=== PATIENT | female | born 1975 | race Caucasian/White ===

== ENCOUNTER 2017-09-25 11:25 | Emergency (ER) | payer BC ==
[2017-09-25 12:08] VITALS: BP 151/112; PULSE 83; TEMP 98.8; BMI 31.2
--- NOTE | 2017-09-25 13:12 | PDOC ---
Attending Attestation - Resident Resident Name: JackyChris - ED Attending Attestation I have performed the following: I have examined & evaluated the patient, The case was reviewed & discussed with the resident, I agree w/resident's findings & plan, Exceptions are as noted - HPI HPI: 09/25/17 13:10 42-year-old female postop day 1 bilateral arm brachioplasty presents with swelling to both arms and numbness/tingling in her hands. No fevers or chills, no cardiopulmonary complaints. - Physicial Exam PE: 09/25/17 13:10 Vital signs normal. Well-appearing. Left greater than right arm swelling throughout and circumferential, sensation is intact over all nerve distributions, strong distal pulses and good cap refill. Wounds evaluated by Dr. Naqvi at bedside - Medical Decision Making 09/25/17 13:11 Patient seen and evaluated with the resident. I agree with the overall evaluation, assessment, and management with the following summary of visit: 42-year-old female with postoperative swelling to her left arm and some compressive neuropathy symptoms but no evidence of compartment syndrome. She is well-appearing, the patient was evaluated with Dr. Naqvi at bedside, plan is for aggressive elevation, they will redress the wounds, follow-up in his office. Patient agrees with plan, discussed strict return precautions regarding symptoms of compartment syndrome
--- NOTE | 2017-09-25 13:12 | PDOC ---
History of Present Illness - General Chief Complaint: Pain, Acute Stated Complaint: POST OP PAIN, LT ARM NUMBNESS Time Seen by Provider: 09/25/17 12:33 History Source: Patient Exam Limitations: No Limitations - History of Present Illness Initial Comments: 09/25/17 13:11 The patient is a 42F with no PMH who presents to the ER experiencing L hand numbness and swelling. The patient is POD1 from a b/l brachioplasty with Dr. Naqvi. She states that since her surgery, she felt worsening numbness and swelling in her L hand. She feels swelling in her R hand but not to the extent of her left hand. She is also complaining of the inability to make a fist in her L hand. She denies CP, SOB, fevers, chills. She also denies any discharge from her incision sites. Past History - Past Medical History Allergies/Adverse Reactions: Allergies Allergy/AdvReac Type Severity Reaction Status Date / Time No Known Allergies Allergy Verified 09/25/17 12:00 Home Medications: Ambulatory Orders NK [No Known Home Medication] 09/25/17 COPD: No DVT: No Dementia: No - Surgical History Abdominal Surgery: Yes (umbilical hernia / gastric bypass/ tubal ligation/ abdominal plasty) Appendectomy: Yes Cholecystectomy: Yes - Immunization History Immunization Up to Date: Yes - Suicide/Smoking/Psychosocial Hx Smoking History: Never smoked Information on smoking cessation initiated: No Hx Alcohol Use: No Drug/Substance Use Hx: No Substance Use Type: None Review of Systems - Review of Systems Able to Perform ROS?: Yes Comments:: 09/25/17 13:18 GENERAL/CONSTITUTIONAL: No fever or chills. No weakness. HEAD, EYES, EARS, NOSE AND THROAT: No change in vision. No ear pain or discharge. No sore throat. CARDIOVASCULAR: No chest pain, palpitations, or lightheadedness. RESPIRATORY: No cough, wheezing, shortness of breath, or hemoptysis. GASTROINTESTINAL: No nausea, vomiting, diarrhea, constipation, or abdominal pain. GENITOURINARY: No dysuria, frequency, hematuria, or change in urination. MUSCULOSKELETAL: Positive for L forearm and L hand swelling. No neck or back pain. SKIN: No rash or lesions. NEUROLOGIC: Positive for numbness and weakness in her L hand. No headache, tingling, loss of consciousness, or change in strength/sensation. ENDOCRINE: No increased thirst. No abnormal weight change. HEMATOLOGIC/LYMPHATIC: No anemia, easy bleeding, or history of blood clots. ALLERGIC/IMMUNOLOGIC: No hives or skin allergy. Is the patient limited Romanian proficient: No *Physical Exam - Vital Signs Last Vital Signs Temp Pulse Resp BP Pulse Ox 98.8 F 83 17 151/112 100 09/25/17 12:01 09/25/17 12:01 09/25/17 12:01 09/25/17 12:01 09/25/17 12:01 - Physical Exam Comments: 09/25/17 13:19 GENERAL: Well developed, well nourished. Awake and alert. No acute distress. HEENT: Normocephalic, atraumatic. Hearing grossly normal. Moist mucous membranes. PERRLA, EOMI. No conjunctival pallor. NECK: Supple. Full ROM. No JVD. CARDIOVASCULAR: Regular rate and rhythm. PULMONARY: No evidence of respiratory distress. Lungs clear to auscultation bilaterally. No wheezing, rales or rhonchi. ABDOMINAL: Soft. Non-tender. Non-distended. No rebound or guarding. GENITOURINARY: No CVA tenderness bilaterally. MUSCULOSKELETAL: No pain with passive extension in her L wrist. No pitting edema but swelling noted in L hand. Hand became pink when bandage removed from L arm. 2+ radial pulses b/l. No tenderness or hard forearm muscles. No bony deformities or tenderness. EXTREMITIES: No cyanosis. No clubbing. No edema. No calf tenderness. SKIN: Warm and dry. Normal capillary refill. No rashes. No jaundice. NEUROLOGICAL: Alert, awake, appropriate. Cranial nerves 2-12 intact. No deficits to light touch and temperature in face, upper extremities and lower extremities. No motor deficits in the in face, upper extremities and lower extremities. Normal speech. Gait is normal without ataxia. PSYCHIATRIC: Cooperative. Good eye contact. Appropriate mood and affect. Medical Decision Making - Medical Decision Making 09/25/17 13:21 The patient is a 42F with no PMH who is s/p b/l brachioplasty who presents with L arm numbness. Her plastic surgeon, Dr. Naqvi, is at bedside evaluating the patient. No evidence of compartment syndrome and the patient feels better after having the wraps removed from her arms. Dr. Naqvi' PA has placed ABD pads with tape over the incisions. Pt instructed to keep her arms elevated. Pt will f/u with Dr. Naqvi tomorrow. Ready for d/c. *DC/Admit/Observation/Transfer Diagnosis at time of Disposition: Hand swelling Qualifiers: Laterality: bilateral Qualified Code(s): M79.89 - Other specified soft tissue disorders - Discharge Dispostion Disposition: HOME Condition at time of disposition: Stable Admit: No - Referrals Referrals: ON STAFF,NOT [Primary Care Provider] - - Patient Instructions Additional Instructions: Please return to the ER if symptoms persist, worsen, or new symptoms arise. Please follow up with Dr. Naqvi tomorrow. Please keep your arms elevated with a Angel Arm Block. Please call if you have any difficulty from the supply store. Please return to the ER if you have any signs or symptoms of chest pain, shortness of breath, uncontrollable fever, chills, nausea, vomiting, numbness, tingling, or weakness in any part of your body, changes in vision, or slurred speech. - Post Discharge Activity
== END 2017-09-25 13:37 | disposition home or self-care (01) ==
LOC: JER 11:25
DX: M79.89 Other specified soft tissue disorders (principal); Z98.890 Other specified postprocedural states; T81.89XA Other complications of procedures, not elsewhere classified, initial encounter; Z48.89 Encounter for other specified surgical aftercare
CPT/HCPCS: 99281-25